=== PATIENT | male | born 1940 | race Caucasian/White ===

== ENCOUNTER 2017-02-22 03:09 | Inpatient (IN) | payer OTHER ==
[~2017-02-22] VITALS: Ht 177.8 cm; Wt 100.7 kg
[~2017-02-22 03:09] MED LIST: AMLODIPINE BESYL5 M1 PO; ASPIRIN EC81 M1 PO; BETAPACE120 MG; BETAPACE120 MG PO; COZAAR100 M1 PO; DEMADEX20 M1 PO; FLOMAX0.4 M1 PO; LIPITOR40 M1 PO; LIPITOR80 M1 PO; NITROSTAT0.4 M1 SL; PLAVIX75 M1 PO; PRINIVIL10 M1 PO; PROSCAR5 M1 PO; SYMBICORT 16010.2 GM INH; TOPROL XL25 M1 PO; ZESTRIL10 M1 PO
--- NOTE | 2017-02-22 10:24 | RADIOLOGY REPORT ---
EXAMINATION: XR HIP, LEFT CLINICAL INFORMATION: Left total hip replacement COMPARISON: None TECHNIQUE: Two views of the left hip. FINDINGS: Left total hip arthroplasty is identified in alignment on the views provided. No evidence of periprosthetic fracture. Postsurgical changes are seen with mild subcutaneous emphysema and swelling. IMPRESSION: Normal alignment of the left total hip arthroplasty.
[2017-02-22] MEDS ORDERED: COZAAR100 M1 PO (10:45)
--- NOTE | 2017-02-22 11:06 | Admission Core Measures ---
Admission Meds I reviewed the following Meds: Current Medications Sig/Kip Start time Last Medication Dose Stop Time Status Admin Acetaminophen 975 MG ONCE 02/22 0000 AC (Tylenol) 02/22 2359 Amlodipine Besylate 5 MG DAILY 02/23 1000 AC (Norvasc) Atorvastatin Calcium 80 MG DAILY 02/23 1000 AC (Lipitor) Cefazolin Sodium 2,000 MG ONCE 02/22 NR (Kefzol-Ancef Inj) 02/22 2359 Lisinopril 10 MG DAILY 02/23 1000 AC (Prinivil) Losartan Potassium 100 MG DAILY 02/23 1000 AC (Cozaar) Metoprolol Succinate 25 MG DAILY 02/23 1000 AC (Toprol XL) Oxycodone HCl 10 MG ONCE 02/22 NR (Roxicodone) 02/22 2359 Sotalol HCl 120 MG DAILY 02/23 1000 AC (Betapace) Tamsulosin HCl 0.8 MG DAILY 02/23 1000 AC (Flomax) Torsemide 20 MG DAILY 02/23 1000 AC (Demadex 20 MG) Acute Coronary Syndrome Inclusion Criteria ACS Diagnosis No Inpatient Core Measures LDL Reminder: If No, please order W/I first 24hr of stay Congestive Heart Failure Inclusion Criteria CHF Diagnosis No Cerebrovascular accident Inclusion Criteria CVA/TIA Diagnosis No Inpatient Core Measures Bedside Swallow Eval Reminder: If BSE failed, place ST order Antithrombotic Reminder: Order Antithrombotic Medication by end of day 2 Antithrombotic Reminder: Document Reason Antithrombotic Not ordered by end of day 2 AFIB/Flutter Reminder: If Present, add to problem list AFIB/Flutter Reminder: Order Anticoag Medication for pts with AFIB/Flutter Atherosclerosis Reminder: If Present, add to problem list LDL Reminder: If No, please order W/I first 24hr of stay PT Order Reminder: If No, please order Venous thromboembolism Inpatient Core Measures VTE Risk Factors: Age > 40, Surgery No [facility] VTE prophylaxis d/t No contraindications No VTE Pharm Prophylaxis d/t No contraindications Inclusion Criteria - Per Current guidelines, there needs to be overlap - treatment for the first 5 days of Warfarin therapy. - Parenteral Anticoagulation (IV or SC) needs to be - given along with Warfarin therapy. VTE Diagnosis No VTE Type NONE VTE Confirmed by (Test) NONE Problem List As ranked by this Provider includes Assessment & Plan 1. Unilateral primary osteoarthritis, left hip HOME MEDS Home Med List Amlodipine Besylate 5 MG TABLET 1 TAB PO DAILY BP (Reported) Aspirin (Ecotrin*) 81 MG TABLET.DR 1 TAB PO DAILY HEART/BLOOD (Reported) Atorvastatin Calcium (Lipitor) 80 MG TABLET 1 TAB PO DAILY CHOLESTEROL ( Reported) Budesonide/Formoterol Fumarate (Symbicort 160-4.5 Mcg Inhaler) (Unknown Strength ) HFA.AER.AD (Unknown Dose) INH PRN RESPIRATORY (Reported) Clopidogrel Bisulfate (Plavix) 75 MG TABLET 1 TAB PO DAILY STENTS (Reported) Lisinopril (Zestril) 10 MG TABLET 1 TAB PO DAILY HTN (Reported) Losartan (Cozaar) 100 MG TABLET 1 TAB PO DAILY htn (Reported) Metoprolol Succ XL (Toprol XL) 25 MG TAB 1 TAB PO DAILY BP (Reported) Nitroglycerin (Nitrostat) 0.4 MG TAB.SUBL 1 TAB SL AD PRN CHEST PAIN ( Reported) Sotalol HCl (Betapace) 120 MG TABLET 1 TAB PO BID cardiac rhythm (Reported) Sotalol HCl (Betapace) 120 MG TABLET 1 TAB PO DAILY CAD (Reported) Tamsulosin HCl (Flomax) 0.4 MG CAP.ER.24H 2 CAP PO DAILY PROSTATE (Reported) Torsemide (Demadex) 20 MG TABLET 1 TAB PO DAILY EDEMA (Reported)
[2017-02-22] MEDS ORDERED: DILAUDID2 M1 PO (11:12)
[2017-02-22] MEDS ORDERED: ASPIRIN EC325 M2 PO (11:12)
[2017-02-22] MEDS ORDERED: PRILOSEC OTC20 M1 PO (11:12)
[2017-02-22] MEDS ORDERED: MS CONTIN15 M2 PO (11:12)
[2017-02-22] MEDS ORDERED: COLACE100 M1 PO (11:12)
[2017-02-22] MEDS ORDERED: MIRALAX17 G1 PO (11:12)
--- NOTE | 2017-02-22 11:14 | Patient Discharge Instructions ---
Discharge Instructions General Discharge Information You were seen/treated for: left hip pain secondary to osteoarthritis You had these procedures: left total hip replacement Watch for these problems: increasing pain, redness, warmth, swelling. Inability to bear weight on left leg. Drainage of any type from incision, fever greater than 101.5 Do not soak the wound: Yes No bath, but you may shower: Yes Other wound care: daily dry dressing changes Special Instructions: No ointment of any type on or near incision, no exceptions. Aspirin to be taken twice daily for minimum of 4 weeks for protection against blood clot formation, follow up with blood tester for maintenance dose of aspirin after the completion of 4 week therapy Diet Continue normal diet: Yes Recommended Diet: Heart Healthy Activity Full Activity/No Limits: No Activity Self Limited: Yes Pounds, do NOT lift more than: 10 Additional ACTIVITY Info: weight bear as tolerated Acute Coronary Syndrome Inclusion Criteria At DC or during hospital stay patient has or had the following: ACS DIAGNOSIS No Discharge Core Measures Meds if any: Prescribed or Continued at Discharge Meds if any: NOT Prescribed or Continued at Discharge Congestive Heart Failure Inclusion Criteria At DC or during hospital stay patient has or had the following: CHF DIAGNOSIS No Discharge Core Measures Meds if any: Prescribed or Continued at Discharge Meds if any: NOT Prescribed or Continued at Discharge Cerebrovascular accident Inclusion Criteria At DC or during hospital stay patient has or had the following: CVA/TIA Diagnosis No Discharge Core Measures Meds if any: Prescribed or Continued at Discharge Meds if any: NOT Prescribed or Continued at Discharge Venous thromboembolism Inclusion Criteria VTE Diagnosis No VTE Type NONE VTE Confirmed by (Test) NONE Discharge Core Measures - Per Current guidelines, there needs to be overlap - treatment for the first 5 days of Warfarin therapy. - If discharged on Warfarin prior to 5 days of - overlap therapy, the patient will need to be - assessed for post discharge needs including - *Post discharge parental anticoagulation - *Warfarin and/or parental anticoagulation education - *Follow up date to check INR post discharge At least 5 days overlap therapy as Inpatient No Meds if any: Prescribed or Continued at Discharge Note: Overlap Therapy is Warfarin and Anticoagulant Meds if any: NOT Prescribed or Continued at Discharge
--- NOTE | 2017-02-22 11:36 | Surgical Discharge Summary ---
Visit Information Visit Dates Admission Date: 02/22/17 Discharge Date: 02/22/17 History of Present Illness Chief Complaint: LEFT HIP PAIN Medical History Isolation History: Standard Surgical History Pertinent Surgical History: non-contributory Review of Systems: SEE H&P Hospital Course Course Attending Physician: JUAN JOSE HUNG MD Primary Care Physician: PERRY GALLEGOS,[facility] Course: Donta was admitted to the hospital on 02/22/2017 for an elective left total hip replacement. He tolerated the procedure well and was transferred to a general surgical floor. There his vital signs were stable and with in normal limits. His neurovascular status remained intact. His diet was advanced and tolerated. He voided spontaneously. His pain was controlled with po pain medications. He was evaluated and treated by physical therapy. He was deemed appropriate for discharge. Allergies: Coded Allergies: apixaban (From ELIQUIS) (internal bleeding 03/08/16) Disposition Summary Disposition Principal Diagnosis: Left hip unilateral primary osteoarthritis Additional Diagnosis: none Discharge Disposition: home health services Discharge Instructions General Discharge Information Code Status: Full Code Patient's Diet: ADA, advance as tolerated Patient's Activity: wbat on left leg Follow-Up Instructions/Appts: Follow up in [address] Hung Medications at Discharge Discharge Medications: Stop taking the following medications: Clopidogrel Bisulfate (Plavix) 75 MG TABLET ORAL DAILY Aspirin (Ecotrin*) 81 MG TABLET.DR ORAL DAILY Sotalol HCl (Betapace) 120 MG TABLET DAILY Continue taking these medications: Amlodipine Besylate (Amlodipine Besylate) 5 MG TABLET 1 Tablet ORAL DAILY Comments: DOCUMENTED PER CMR DURING PRE-SX INTERVIEW Budesonide/Formoterol Fumarate (Symbicort 160-4.5 Mcg Inhaler) (Unknown Strength ) HFA.AER.AD Unknown Dose Inhale through mouth as needed for RESPIRATORY Comments: DOCUMENTED PER CMR DURING PRE-SX INTERVIEW Metoprolol Succ XL (Toprol XL) 25 MG TAB 1 Tablet ORAL DAILY Comments: DOCUMENTED PER CMR DURING PRE-SX INTERVIEW Nitroglycerin (Nitrostat) 0.4 MG TAB.SUBL 1 Tablet SUBLINGUAL As Directed as needed for CHEST PAIN Instructions: 1st sign of attack; may repeat every 5 minutes until relief; if pain persists after 3 tablets in 15 minutes, prompt medical att Comments: DOCUMENTED PER CMR DURING PRE-SX INTERVIEW Tamsulosin HCl (Flomax) 0.4 MG CAP.ER.24H 2 Capsule ORAL DAILY Comments: DOCUMENTED PER CMR DURING PRE-SX INTERVIEW Atorvastatin Calcium (Lipitor) 80 MG TABLET 1 Tablet ORAL DAILY Lisinopril (Zestril) 10 MG TABLET 1 Tablet ORAL DAILY Sotalol HCl (Betapace) 120 MG TABLET 1 Tablet ORAL TWICE DAILY Torsemide (Demadex) 20 MG TABLET 1 Tablet ORAL DAILY Losartan (Cozaar) 100 MG TABLET 1 Tablet ORAL DAILY Qty = 30 Start taking the following new medications: Aspirin (Ecotrin*) 325 MG TABLET.DR 1 Tablet ORAL TWICE DAILY Qty = 60 No Refills Docusate Sodium (Colace) 100 MG CAPSULE 1 Capsule ORAL TWICE DAILY Qty = 14 No Refills Instructions: DISCONTINUE USE IF YOU DEVELOP LOOSE STOOL OR DIARRHEA Hydromorphone HCl (Dilaudid) 2 MG TABLET 1-2 Tablet ORAL EVERY 4-6 HOURS as needed for PAIN Qty = 36 No Refills Polyethylene Glycol 3350 (Miralax) 17 GRAM POWD.PACK 1 Packet ORAL DAILY Qty = 7 No Refills Instructions: dissolve in water, DISCONTINUE USE IF YOU DEVELOP LOOSE STOOL OR DIARRHEA Morphine Sulfate (Ms Contin) 15 MG TABLET.ER 1 Tablet ORAL TWICE DAILY Qty = 6 No Refills Omeprazole Magnesium (Prilosec Otc) 20 MG TABLET.DR 1 Tablet ORAL DAILY Qty = 30 No Refills
--- NOTE | 2017-02-22 11:45 | NUR ---
PT ARRIVED TO FLOOR. AOX3. AMBULATED FROM STRETCHER TO BED USING WALKER WITH PT. DRESSING IN TACT. NO PAIN.
[2017-02-22 12:00] VITALS: BP 120/70
--- NOTE | 2017-02-22 12:30 | NUR ---
SPOKE TO HARPREET ABOUT AMBULATORY O2 SATS. BASELINE FOR PT AROUND UPPER 80S. DURING AMBULATION AROUND UNIT DESAT TO 86%. RETURNED TO 88% WHEN SITTING IN THE ROOM AND PLACED ON OXYGEN VIA NASAL CANNULA AT 2L. PT HAS HX OF COPD AND CHRONIC SMOKER.
--- NOTE | 2017-02-22 12:43 | PN- Orthopedic ---
Subjective Subjective: The patient was seen this afternoon postoperatively. He reports that his pain is adequately controlled has no complaints the current time. He has requested physical therapy and is eager to go home later today. He denies any chest pain, palpitations, or difficulty breathing. He is currently requiring 3 L of oxygen via nasal cannula to me adequate O2 saturation. Objective Vital Signs and I&Os Vital Signs Date Time Temp Pulse Resp B/P B/P Pulse O2 O2 Flow FiO2 Mean Ox Delivery Rate 02/22 1200 93.2 54 20 120/70 96 Nasal 2.0L Cannula Physical Exam: Gen.: Alert and in no obvious distress Skin: Warm and dry Cardiac: S1-S2 regular Pulmonary: Bilateral breath sounds are equal with good exchange. There is mild expiratory wheeze but no rales or rhonchi appreciated Extremities: Bilateral external is warm without calf tenderness or significant edema. Gross motor and sensory are intact. Left hip surgical dressing is clean , dry, and intact without signs of infection. Assessment/Plan Assessment/Plan Assessment: 77-year-old male status post left total hip arthroplasty. Postoperatively the patient is progressing as expected and his pain is under adequate control. Plan: Continue to work with physical therapy patient is weightbearing as tolerated Monitor for postoperative void Strict I's and O's Continue current pain regiment 2 doses of postoperative prophylactic antibiotics Advance diet as tolerated begin aspirin 325 mg by mouth twice a day first dose tonight Resume home medications Total respiratory care with incentive spirometry wean O2 to maintain adequate saturations Possible discharge home later today if goals met Core Measures/Miscellaneous Venous Thromboembolism VTE Risk Factors: Age > 40, Surgery VTE Contraindications: No Contraindications VTE Diagnosis: No VTE Type: NONE VTE Confirmed by (Test): NONE Beta Jus Is Beta Jus a Home Med? Yes If Yes, Was This Ordered Today? Yes Antibiotics Is Patient on Antibiotics? Yes If Yes: prophylaxis
--- NOTE | 2017-02-22 13:59 | Operative Report ---
Operative/Inv Procedure Report Surgery Date: 02/22/17 Name of Procedure: Left total hip replacement Pre-Operative Diagnosis: Primary left hip DJD Post-Operative Diagnosis: Same Estimated Blood Loss: 400 Surgeon/Vp Platforms: JUAN JOSE HUNG MD Anesthesia: block Operative/Procedure Note Note: Description of Procedure: The patient was taken to the operating room and positively identified. After induction of spinal anesthesia and administration of appropriate pre-operative antibiotics, the patient was positioned supine on the operating room table and all bony prominences were well padded. After performing a surgical timeout, the left lower extremity was prepped and draped in the usual sterile fashion. A direct anterior approach was made to the left hip. The incision was carried sharply through superficial soft tissues to the level of the fascia. Meticulous hemostasis was maintained with Bovie electocautery. The fascia over the tensor fascia michel muscle was opened sharply and the interval between the TFL and the sartorius was entered bluntly taking care to stay lateral to the lateral femoral cutaneous nerve. Retractors were placed around the femoral neck and the pericapsular fat was identified. The ascending branches of the lateral femoral circumflex vessels were identified and carefully coagulated. The pericapsular fat and anterior capsule were then resected. A napkin ring osteotomy was performed and the femoral head was removed without difficulty. Attention was then turned to the acetabulum. After appropriate placement of retractors, the acetabulum was exposed. Soft tissue was cleaned from the acetabular margin and notch. Overhanging osteophytes were removed and the teardrop was exposed. The acetabulum was then sequentially reamed to accept a 62 mm Patti Tritanium hemispherical solid back shell. This was impacted into place in the appropriate position and fitted with a 36 mm Trident X3 zero degree polyethylene insert. Attention was then turned to the femur. After performing the appropriate ligament releases, the proximal femur was exposed. It was then sequentially broached to accept a size 8 Patti accolade 2 stem. This was trialed for leg length and stability. The trial component was removed and the final component was impacted into place. The trunnion was carefully cleaned and fit with a 36 mm, +0 Biolox delta ceramic femoral head. The hip was reduced and put through a full range of motion and found to be stable. The articular space was then irrigated with sterile saline. The periarticular soft tissues were infilitrated with Marcaine. The fascial layer was closed with interrupted #1 vicryl suture and the skin was re-approximated with interrupted 2 -0 vicryl. The skin was closed with a running 3-0 V-Lock suture. Steri-strips and a sterile dressing were applied. The patient was awakened and taken to the recovery room in satisfactory condition.
[2017-02-22 14:32] VITALS: BP 118/62
== END 2017-02-22 15:40 | disposition home health service (06) | DRG 470 ==
LOC: SDA 03:09 → ENRESERV 10:10 → 2NA 11:23 → ENPENDDIS 13:21 → 2NA 15:40
PROVIDERS: ADMIT Orthopaedic Surgery
PROC: 0SRB04A Replacement of Left Hip Joint with Ceramic on Polyethylene Synthetic Substitute, Uncemented, Open Approach (ICD-10-PCS; principal; 2017-02-22)
DX: M16.12 Unilateral primary osteoarthritis, left hip (principal); I65.29 Occlusion and stenosis of unspecified carotid artery; J44.9 Chronic obstructive pulmonary disease, unspecified; I25.10 Atherosclerotic heart disease of native coronary artery without angina pectoris; I10 Essential (primary) hypertension; F17.200 Nicotine dependence, unspecified, uncomplicated; N40.0 Benign prostatic hyperplasia without lower urinary tract symptoms; I71.4 Abdominal aortic aneurysm, without rupture
CPT/HCPCS: 2NASP; 73502-LT; 88304; 97110-GO; 97116-GO; 97161-GP; 97530-GO; J0131; J0690; J0735; J2550; J3490; J7042